=== PATIENT | male | born 1955 | race Caucasian/White ===

== ENCOUNTER → 2018-09-02 | Outpatient (CLI) | payer OTHER ==
--- NOTE | 2018-09-02 13:45 | Diagnostic Imaging Report ---
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 Blood pressure was monitored at 5 minute intervals. Additional Medications: Lidocaine 1% for local anesthesia Estimated blood loss: Minimal Blood products administered: None Complications: No immediate Specimens: Fine-needle aspiration specimens x3 Implants: None Condition at completion: Stable Disposition: Discharged home DISCUSSION: Informed consent was obtained and documented in the medical record. Preliminary sonographic evaluation of the left cervical region showed morphologically abnormal lymph nodes deep to the sternocleidomastoid muscle. A suitable percutaneous approach was identified and the overlying skin was prepped and draped in standard sterile fashion. 1% lidocaine was infiltrated into the skin and subcutaneous tissues for local anesthesia. Then under continuous sonographic guidance 3 fine-needle aspiration specimens were obtained using 25-gauge needles. Specimens were submitted to on-site cytopathology personnel and adequacy was confirmed. At the conclusion of sampling a sterile dressing was applied. The patient tolerated the procedure well without immediate complication. FINDINGS: Morphologically abnormal left cervical lymph nodes. IMPRESSION: Successful ultrasound-guided fine-needle aspiration of a left cervical lymph node as above. Signed by: Dr. Tayo Gutierrez M.D. on 09/02/2018 1:42 PM
== END ==
LOC: US 08:54
PROVIDERS: ATTEND Otolaryngology
DX: R59.0 Localized enlarged lymph nodes (principal)
CPT/HCPCS: 10005; 88172; 88173; 88305; 88342